=== PATIENT | male | born 1945 | race Caucasian/White ===

== ENCOUNTER 2020-01-23 10:14 | Day surgery (SDC) | payer MEDICARE ==
[~2020-01-23] VITALS: Ht 172.7 cm; Wt 77.3 kg
[~2020-01-23 10:14] MED LIST: ASPI-515 PO; ASPI81TA45 PO; ATOR-2 PO; ATOR20TA37 PO; ATOR40TA78 PO; CLOP75TA PO; FENO150C4 PO; GLIP5TAB10 PO; INSU100I28 SQ-INSULIN; LEVOTHYROXINE PO; LISI-167 PO; MELO7.5T31 PO; METO25TA91 PO; SERT50TA28 PO; TIZANIDINE PO; TRAZODONE; VITAMIN D3
[2020-01-23] MEDS ORDERED: vitamin c PO (10:43)
[2020-01-23] MEDS ORDERED: GLIP10TA13 PO (10:43)
[2020-01-23] MEDS ORDERED: MULT-464 PO (10:43)
[2020-01-23 10:45] VITALS: BP 131/62
[2020-01-23] MEDS ORDERED: SODIUM CHLORIDE 0.9% 1,000 ML IV ONE (11:00)
[2020-01-23] MEDS ORDERED: PROPOFOL 10 MG/ML, 20ML ONE ×2 (11:16→11:52)
== END 2020-01-23 13:38 | disposition home or self-care (01) ==
LOC: CACL 10:14
PROVIDERS: ATTEND Internal Medicine Cardiovascular Disease
DX: I08.0 Rheumatic disorders of both mitral and aortic valves (principal); I10 Essential (primary) hypertension; E11.9 Type 2 diabetes mellitus without complications; I25.2 Old myocardial infarction; E78.5 Hyperlipidemia, unspecified; E03.9 Hypothyroidism, unspecified; I69.354 Hemiplegia and hemiparesis following cerebral infarction affecting left non-dominant side; E66.3 Overweight; Z68.26 Body mass index [BMI] 26.0-26.9, adult; Z79.4 Long term (current) use of insulin; Z79.82 Long term (current) use of aspirin; Z79.899 Other long term (current) drug therapy; Z87.891 Personal history of nicotine dependence
CPT/HCPCS: 93312; 93321; 93325; J2704

== ENCOUNTER 2021-04-02 05:50 | Day surgery (SDC) | payer MEDICARE ==
[~2021-04-02] VITALS: Ht 177.8 cm; Wt 75.7 kg
[~2021-04-02 05:50] MED LIST changes: +AMLO2.5T5 PO; -ASPI-515 PO; +ASPI-963 PO; +CHOL10003 PO; +DULA1.5P SC; +GLIP10TA13 PO; +METO25TA35 PO; +MULT-464 PO; +OMEP-110 PO; +vitamin c PO
[2021-04-02 06:39] VITALS: BP 121/58
[2021-04-02] MEDS ORDERED: CHLORHEXIDINE 15 ML UDC PO ONE (07:00)
[2021-04-02] MEDS ORDERED: LACTATED RINGERS 1,000 ML IV SCH (07:00)
[2021-04-02] MEDS ORDERED: ONDANSETRON 2MG/ML, 2ML IVPush PRN (07:30)
[2021-04-02] MEDS ORDERED: FENTANYL PF 100 MCG/2ML IV PRN (07:30)
[2021-04-02] MEDS ORDERED: PROPOFOL 10 MG/ML, 20ML ONE (09:05)
== END 2021-04-02 11:25 | disposition home or self-care (01) ==
LOC: OUT 05:50
PROVIDERS: ATTEND Internal Medicine
DX: K55.20 Angiodysplasia of colon without hemorrhage (principal); T18.2XXA Foreign body in stomach, initial encounter; I10 Essential (primary) hypertension; I25.10 Atherosclerotic heart disease of native coronary artery without angina pectoris; E11.9 Type 2 diabetes mellitus without complications; K21.9 Gastro-esophageal reflux disease without esophagitis; I25.2 Old myocardial infarction; Z79.899 Other long term (current) drug therapy; Z87.891 Personal history of nicotine dependence; X58.XXXA Exposure to other specified factors, initial encounter; Y93.89 Activity, other specified; Y92.89 Other specified places as the place of occurrence of the external cause; Y99.8 Other external cause status
CPT/HCPCS: 43235; 82962; J2704; J7120